=== PATIENT | male | born 1965 | race Caucasian/White ===

== ENCOUNTER 2023-08-20 07:24 | Emergency (ER) | payer OTHER ==
[~2023-08-20] VITALS: Ht 185 cm; Wt 122.0 kg
[2023-08-20] MEDS ORDERED: KETOROLAC INJ 30 MG/ML VIAL IM STA (07:48)
--- NOTE | 2023-08-20 07:48 | ED Lower Extremity ---
General Chief Complaint: Lower Extremity Stated Complaint: BILAT KNEE PAIN | Nursing Triage Note: PT STATES BEING A [employer], ABOUT 20 MIN [employer] HE WAS WALKING AND HAD SHARP PAIN IN THE BACK OF BOTH KNEES, WORSE ON THE LT SIDE. NEVER HAPPENED BEFORE. PAIN HAS ROTATED AROUND TOWARDS THE FRONT History of Present Illness Date Seen by Provider: Aug 20, 2023 Time Seen by Provider: 07:40 Initial Comments 58-year-old male presents with bilateral knee pain but more on the left side. Reports that he was walking this morning and his left leg gave out. The pain is mainly along the medial joint line of the left knee. He does have some mild swelling. Allergies and Home Medications Allergies Coded Allergies: No Known Drug Allergies (Unverified , 08/20/23) Patient Home Medication List Home Medication List Reviewed: Yes Review of Systems Constitutional: no symptoms reported Cardiovascular: no symptoms reported Gastrointestinal: no symptoms reported Genitourinary: no symptoms reported Musculoskeletal: see HPI Skin: no symptoms reported Physical Exam Vital Signs Vital Signs - First Documented 08/20/23 07:34 Temp 36.7 Pulse 72 Resp 20 B/P (MAP) 185/112 (136) Pulse Ox 96 O2 Delivery Room Air Capillary Refill : Less Than 3 Seconds Height, Weight, BMI Height: '" Weight: lbs. oz. kg; 35.00 BMI Method: General Appearance: WD/WN, no apparent distress Cardiovascular: normal peripheral pulses, regular rate, rhythm Respiratory: chest non-tender, lungs clear, normal breath sounds Hips: bilateral hip non-tender Legs: bilateral leg non-tender Knees: left knee soft tissue tenderness, left knee other (minor swelling, minor medial joint line injury, no laxity noted on ligament test) Neurologic/Psychiatric: alert, normal mood/affect, oriented x 3 Skin: normal color, warm/dry Progress/Results/Core Measures Results/Orders My Orders Orders - SUGAR FRANKLIN DO Ketorolac Injection (Ketorolac Injection (08/20/23 07:48) Vital Signs/I&O 08/20/23 08/20/23 07:34 07:57 Temp 36.7 36.7 Pulse 72 Resp 20 B/P (MAP) 185/112 (136) Pulse Ox 96 O2 Delivery Room Air Blood Pressure Mean: 136 Progress Progress Note : Progress Note Patient's exam is consistent with a likely medial meniscus injury. There is no acute injury or trauma that would indicate an x-ray at this time. Discussed with patient physical findings and that he will need to follow-up with orthoped ic specialist for further evaluation. Patient's knee shows no ligament laxity and is more consistent with a meniscus injury. He can use Spencer wrap or knee sleeve/brace as needed. At this time knee immobilizer is not indicated. Patient was provided with orthopedic walk-in clinic information for [place] since he feels he needs to be seen by Ortho today. He could also follow-up with a local desktop specialist of his choice or primary care provider. He is stable and discharged home. Departure Impression Primary Impression: Internal derangement of left knee Disposition: HOME, SELF-CARE Condition: Stable Departure-Patient Inst. Referrals: NO,LOCAL PHYSICIAN (PCP/Family) Primary Care Physician Patient Instructions: Internal Derangement of the Knee Add. Discharge Instructions: Follow-up with desktop specialist for further work-up and imaging as they feel is indicated. You may use an Spencer wrap or knee brace as needed for pain, discomfort and support. Voltaren/diclofenac cream use as directed on package. Ibuprofen every 6-8 hours as needed for discomfort. You may follow-up with desktop specialist of your choice or follow-up with [facility] walk-in clinic [address], [place]. All discharge instructions reviewed with patient and/or family. Voiced understanding. SUGAR FRANKLIN DO Aug 20, 2023 07:47
[2023-08-20 08:15] VITALS: BP 160/96
== END 2023-08-20 08:15 | disposition home or self-care (01) ==
LOC: EDUNIT# 07:24 → ER 07:29
DX: M23.92 Unspecified internal derangement of left knee (principal)
CPT/HCPCS: 96372; 99284